=== PATIENT | male | born 1960 | race Caucasian/White ===

== ENCOUNTER 2016-12-25 17:59 | Emergency (ER) | payer OTHER ==
[~2016-12-25] VITALS: Ht 188 cm; Wt 69.6 kg
[~2016-12-25 17:59] MED LIST: SIMV80TA2 PO
[2016-12-25 18:06] VITALS: TEMP 36.8; Ht 188 cm; Wt 69.6 kg
[2016-12-25] MEDS ORDERED: XYLOCAINE 1%/SOD BICARB 20 ML VIAL INFIL ONE (18:30)
--- NOTE | 2016-12-25 18:43 | EMERGENCY ROOM VISIT NOTE ---
ED Visit Note First contact with patient: 18:21 CHIEF COMPLAINT: Right forearm laceration HISTORY OF PRESENT ILLNESS: This 56-year-old male patient presents to the emergency department ambulatory after cutting the right forearm when he was at work just prior to arrival and a heavy fan fell onto his right forearm. The bleeding has stopped. Denies weakness or numbness of the hands or arms. The patient denies any pain. The patient denies any other injuries. The patient's Tetanus shot is up to date. REVIEW OF SYSTEMS: A 6 system review of systems was completed with positives and pertinent negatives listed in the HPI. ALLERGIES: No known drug allergies MEDICATIONS: Simvastatin PMH: Hyperlipidemia SOCIAL HISTORY: The patient lives locally. He is employed PHYSICAL EXAM: Vital Signs: Reviewed Nurse's notes, vital signs stable. GENERAL : This is a 56-year-old male, in no acute distress, well-developed, well- nourished. SKIN: There is a 3 cm long triangular shaped flap-like laceration on the dorsal aspect of the right mid forearm. The edges gape apart with traction. There is no foreign material in the wound and it looks clean. There is no significant bleeding. No deep structures such as tendons, bones, or nerves are seen in the base of the wound. Normal strength and movement of the wrist and hand. Capillary refill less than 2 seconds. Normal sensation to light and sharp touch. EMERGENCY DEPARTMENT COURSE: I examined the patient. An x-ray was obtained given the mechanism of injury. This was negative for foreign body or fracture. Using sterile technique the wound was cleaned with Betadine. The area was sterilely draped. 3 ml of 1% buffered lidocaine was used to anesthetize the laceration on the arm. Once the patient was numb, the wound was copiously irrigated under pressure with sterile saline. The wound was explored and was as described above. The laceration was repaired using 7 simple interrupted and one pursestring 5-0 nylon sutures with the wound edges being well approximated. The patient tolerated the procedure well. The bleeding stopped. The area was cleaned with sterile saline and dressed with bacitracin ointment and bandage. The patient was discharged home in good condition. DIAGNOSIS: Right forearm laceration DISCHARGE INSTRUCTIONS & TREATMENT: Keep wound clean and dry. Do not allow any crusting or dried blood to accumulate on sutures. If this occurs, use a 1:1 solution of hydrogen peroxide/water on a Q-tip to clean the wound. Use an antibiotic ointment for 3-4 days, then let wound dry. Suture removal in 10-12 days. Return sooner for any signs of infection (increasing redness, swelling, drainage). Ice and elevate for swelling and pain. Ibuprofen 600 mg every 6 hrs for pain. Keep covered when in sun until sutures removed then SPF 50 or higher for one year. Vitamin E oil if desired two weeks after suture removal for reduction of scar. Current/Historical Medications Scheduled Simvastatin (Zocor), 80 MG PO QPM Allergies Coded Allergies: No Known Allergies (Unverified , 03/18/12) Vital Signs Date Time Temp Pulse Resp B/P (MAP) Pulse Ox O2 Delivery O2 Flow Rate FiO2 12/25/16 19:31 87 20 148/79 96 Room Air 12/25/16 18:06 36.8 84 18 143/83 97 Room Air Medications Administered Medications (Trade) Dose Ordered Sig/Doyle Route Start Time Stop Time Status Last Admin Dose Admin Lidocaine HCl (Buffered Lidocaine 1% Inj) 20 ml NOW ONCE INFIL 12/25/16 18:30 12/25/16 18:31 DC 12/25/16 18:30 20 ML Departure Information Impression Primary Impression: Laceration Dispostion Home / Self-Care Condition GOOD Referrals No Doctor, Assigned (PCP) Patient Instructions ED Laceration All, [facility] Additional Instructions Keep wound clean and dry. Do not allow any crusting or dried blood to accumulate on sutures. If this occurs, use a 1:1 solution of hydrogen peroxide/ water on a Q-tip to clean the wound. Use an antibiotic ointment for 3-4 days, then let wound dry. Suture removal in 10-12 days. Return sooner for any signs of infection (increasing redness, swelling, drainage). Ice and elevate for swelling and pain. Ibuprofen 600 mg every 6 hrs for pain. Keep covered when in sun until sutures removed then SPF 50 or higher for one year. Vitamin E oil if desired two weeks after suture removal for reduction of scar.
--- NOTE | 2016-12-25 18:54 | DIAGNOSTIC IMAGING REPORT ---
RIGHT FOREARM 3 VIEWS HISTORY: right arm contusion, laceration Right COMPARISON: None. FINDINGS: There is no fracture or dislocation. Small soft tissue laceration within the mid forearm. No radiopaque foreign bodies. IMPRESSION: No fractures. Small soft tissue laceration within the mid forearm. Electronically signed by: Aguilar Freitas M.D. 12/25/2016 6:53 PM Dictated Date/Time: 12/25/2016 6:52 PM
[2016-12-25 19:31] VITALS: BP 148/79; PULSE 87; O2SAT 96
== END 2016-12-25 19:33 | disposition home or self-care (01) ==
LOC: C.EDB 18:00 → C.EDD 19:33
DX: S51.811A Laceration without foreign body of right forearm, initial encounter (principal); W20.8XXA Other cause of strike by thrown, projected or falling object, initial encounter; Y92.89 Other specified places as the place of occurrence of the external cause; Y99.0 Civilian activity done for income or pay; R78.5 Finding of other psychotropic drug in blood; Z79.899 Other long term (current) drug therapy